=== PATIENT | male | born 1945 | race Caucasian/White ===

== ENCOUNTER 2018-01-05 23:42 | Inpatient (IN) | payer OTHER, MEDICARE ==
[~2018-01-05] VITALS: Ht 170.2 cm; Wt 49.5 kg
[2018-01-05 23:42] VITALS: BP 126/58; PULSE 125; RESP 20; TEMP 98.5; O2SAT 86
[~2018-01-05 23:42] MED LIST: AGGR20025 PO; CVS20TAB PO; PRED20 PO; VENTAER INH; ZOCO10TA PO; ZYRT10TA12 PO
[2018-01-05] MEDS ORDERED: AGGR20025 PO (23:57)
[2018-01-05] MEDS ORDERED: SYMB80AE INH (23:57)
[2018-01-05 23:58] VITALS: RESP 28; O2SAT 91
[2018-01-06] VITALS (23 sets, daily range): BP systolic 87–115; BP diastolic 43–65; PULSE 80–117; RESP 19–30; TEMP 97.6–99.5; O2SAT 92–99
[2018-01-06] MEDS ORDERED: methylPREDNISolone SOD SUCC 125 MG/2 ML VIAL IV PUSH ONE
[2018-01-06] MEDS ORDERED: SODIUM CHLORIDE 0.9% FLUSH 10 ML FLUSH IVF PRN
--- NOTE | 2018-01-06 00:06 | PD ---
HPI Chief Complaint: Respiratory Symptoms Time Seen by Provider: 23:53 Travel History International Travel<30 days: No Contact w/Intl Traveler<30days: No Traveled to known affect area: No History of Present Illness HPI 72-year-old male history of COPD and long-term smoking presented to the ER for evaluation of shortness of breath. Shortness of breath started 4 days ago, patient is only able to walk less than a block without getting short of breath, cough, productive of yellow sputum, no fever or chills. Patient has history of COPD and takes Symbicort and he tried his inhaler with minimal help. He does not use any home oxygen, no chest pain or palpitations or swelling. PFSH Past Medical History Hx Anticoagulant Therapy: Yes (ASA ) COPD: Yes Cerebrovascular Accident: Yes Neurologic: Yes (tia) Respiratory: Yes Past Surgical History Abdominal Surgery: Yes (hernia repair) Social History Alcohol Use: No Tobacco Use: Yes (E-CIG ) Substance Use: No Allergies-Medications (Allergen,Severity, Reaction): Coded Allergies: No Known Allergies (Verified Allergy, Unknown, 01/06/18) Reported Meds & Prescriptions Reported Meds & Active Scripts Active Reported Symbicort Inh (Budesonide/Formoterol Fumarate) 80-4.5 Mcg/Act Aero 2 Puff INH Q12HR Aggrenox (Dipyridamole/Aspirin) 200-25 Mg Cap 1 Cap PO BID Review of Systems Except as stated in HPI: all other systems reviewed are Neg Physical Exam Narrative GENERAL: Alert oriented x3, using accessory muscles, speaking full sentences SKIN: Focused skin assessment warm/dry. HEAD: Atraumatic. Normocephalic. EYES: Pupils equal and round. No scleral icterus. No injection or drainage. ENT: No nasal bleeding or discharge. Mucous membranes pink and moist. NECK: Trachea midline. No JVD. CARDIOVASCULAR: Regular rate and rhythm. No murmur appreciated. RESPIRATORY: No accessory muscle use. Clear to auscultation. Breath sounds equal bilaterally. GASTROINTESTINAL: Abdomen soft, non-tender, nondistended. Hepatic and splenic margins not palpable. MUSCULOSKELETAL: No obvious deformities. No clubbing. No cyanosis. No edema. NEUROLOGICAL: Awake and alert. No obvious cranial nerve deficits. Motor grossly within normal limits. Normal speech. PSYCHIATRIC: Appropriate mood and affect; insight and judgment normal. Data Data Last Documented VS Vital Signs Date Time Temp Pulse Resp B/P (MAP) Pulse Ox O2 Delivery O2 Flow Rate FiO2 01/06/18 02:55 105 24 114/55 (74) 94 Nasal Cannula 4.00 01/06/18 00:52 99.5 Orders Orders Complete Blood Count With Diff (01/05/18 23:53) Comprehensive Metabolic Panel (01/05/18 23:53) B-Type Natriuretic Peptide (01/05/18 23:53) D-Dimer (01/05/18 23:53) Act Partial Throm Time (Ptt) (01/05/18 23:53) Prothrombin Time / Inr (Pt) (01/05/18 23:53) Ckmb (Isoenzyme) Profile (01/05/18 23:53) Troponin I (01/05/18 23:53) Urinalysis - C+S If Indicated (01/05/18 23:53) Iv Access Insert/Monitor (01/05/18 23:53) Electrocardiogram (01/05/18 23:53) Ecg Monitoring (01/05/18 23:53) Oximetry (01/05/18 23:53) Oxygen Administration (01/05/18 23:53) Chest, Single Ap (01/05/18 23:53) Sodium Chloride 0.9% Flush (Ns Flush) (01/06/18 00:00) Methylprednisolone So Succ Inj (Solumedr (01/06/18 00:00) Albuterol-Ipratropium Neb (Duoneb Neb) (01/06/18 00:00) Arterial Blood Gas (Abg) (01/06/18 ) Blood Culture (01/06/18 00:14) Lactic Acid (01/06/18 00:14) CKMB (01/06/18 00:05) CKMB% (01/06/18 00:05) Sodium Chlor 0.9% 1000 Ml Inj (Ns 1000 M (01/06/18 01:00) Ct Pulmonary Angiogram (01/06/18 ) Iohexol 350 Inj (Omnipaque 350 Inj) (01/06/18 02:31) Sodium Chlor 0.9% 1000 Ml Inj (Ns 1000 M (01/06/18 03:00) Levofloxacin 500 Mg Premix Inj (Levaquin (01/06/18 03:00) Admit Order (Ed Use Only) (01/06/18 03:14) Levofloxacin 750 Mg Premix Inj (Levaquin (01/07/18 21:00) Sodium Chloride 0.9% Flush (Ns Flush) (01/06/18 03:15) Sodium Chloride 0.9% Flush (Ns Flush) (01/06/18 09:00) Albuterol-Ipratropium Neb (Duoneb Neb) (01/06/18 03:15) Methylprednisolone So Succ Inj (Solumedr (01/06/18 09:00) Admit To Inpatient (01/06/18 ) Vital Signs (Adult) Q4H (01/06/18 03:11) Notify Parameters (01/06/18 03:11) Intake + Output Q8H (01/06/18 03:11) ^ Smoking Cessation Counseling (01/06/18 03:11) Diet Heart Healthy (01/06/18 Breakfast) Legionella Urinary Antigen (01/06/18 03:11) Pneumococcal Urinary Antigen (01/06/18 03:11) Heparin Inj (Heparin Inj) (01/06/18 09:00) Inpatient Certification (01/06/18 ) Labs Laboratory Tests Test 01/06/18 00:00 01/06/18 00:05 01/06/18 00:28 Blood Gas Puncture Site RT RADIAL Blood Gas Patient Temperature 37.0 Blood Gas HCO3 26 mmol/L Blood Gas Base Excess 2.1 mmol/L Blood Gas Oxygen Saturation 89 % Arterial Blood pH 7.40 Arterial Blood Partial Pressure CO2 43 mmHg Arterial Blood Partial Pressure O2 65 mmHg Arterial Blood Oxygen Content 17.6 Vol % Arterial Blood Carboxyhemoglobin 3.7 % Arterial Blood Methemoglobin 1.0 % Blood Gas Hemoglobin 14.1 G/DL Oxygen Delivery Device NASAL CANNULA Blood Gas Liter Flow 3.5 L/M White Blood Count 8.6 TH/MM3 Red Blood Count 4.21 MIL/MM3 Hemoglobin 13.5 GM/DL Hematocrit 40.5 % Mean Corpuscular Volume 96.2 FL Mean Corpuscular Hemoglobin 32.2 PG Mean Corpuscular Hemoglobin Concent 33.4 % Red Cell Distribution Width 12.4 % Platelet Count 257 TH/MM3 Mean Platelet Volume 8.9 FL Neutrophils (%) (Auto) 74.9 % Lymphocytes (%) (Auto) 4.7 % Monocytes (%) (Auto) 19.7 % Eosinophils (%) (Auto) 0.6 % Basophils (%) (Auto) 0.1 % Neutrophils # (Auto) 6.4 TH/MM3 Lymphocytes # (Auto) 0.4 TH/MM3 Monocytes # (Auto) 1.7 TH/MM3 Eosinophils # (Auto) 0.1 TH/MM3 Basophils # (Auto) 0.0 TH/MM3 CBC Comment DIFF FINAL Differential Comment Prothrombin Time 11.4 SEC Prothromb Time International Ratio 1.1 RATIO Activated Partial Thromboplast Time 28.5 SEC D-Dimer Quantitative (PE/DVT) 1.48 MG/L FEU Urine Color RAUL Urine Turbidity CLEAR Urine pH 5.0 Urine Specific [place] GREATER/EQUAL 1.030 Urine Protein 100 mg/dL Urine Glucose (UA) NEG mg/dL Urine Ketones TRACE mg/dL Urine Occult Blood TRACE Urine Nitrite NEG Urine Bilirubin NEG Urine Urobilinogen 1.0 MG/DL Urine Leukocyte Esterase NEG Urine RBC 3-5 /hpf Urine WBC 0-2 /hpf Urine Squamous Epithelial Cells 0-5 /hpf Urine Bacteria NONE /hpf Microscopic Urinalysis Comment CULT NOT INDICATED Blood Urea Nitrogen 23 MG/DL Creatinine 0.85 MG/DL Random Glucose 127 MG/DL Total Protein 7.6 GM/DL Albumin 3.4 GM/DL Calcium Level 8.8 MG/DL Alkaline Phosphatase 98 U/L Aspartate Amino Transf (AST/SGOT) 40 U/L Alanine Aminotransferase (ALT/SGPT) 38 U/L Total Bilirubin 0.8 MG/DL Sodium Level 131 MEQ/L Potassium Level 3.8 MEQ/L Chloride Level 95 MEQ/L Carbon Dioxide Level 27.2 MEQ/L Anion Gap 9 MEQ/L Estimat Glomerular Filtration Rate 88 ML/MIN Total Creatine Kinase 201 U/L Creatine Kinase MB 2.9 NG/ML Troponin I LESS THAN 0.02 NG/ML B-Type Natriuretic Peptide 34 PG/ML Lactic Acid Level 1.1 mmol/L MDM Medical Decision Making Medical Screen Exam Complete: Yes Emergency Medical Condition: Yes Differential Diagnosis Pneumonia, pneumothorax, PE, malignancy. Narrative Course 72-year-old male with history of 1 pack per day smoking for the last 50+ years presented to the ER for shortness of breath. When arrived in the ER patient was saturating 80% on room air, using accessory muscles, tachycardic, tachypneic. Patient improved with nasal cannula oxygen but every time we lower the oxygen less than 2 L his saturations drop. Patient received multiple neb treatment and has been coughing green phlegm. Chest x-ray is unremarkable CAT scan shows evidence of pneumonia without evidence of PE. Labs remarkable for a left shift and hyponatremia. Patient had 2 episodes of hypotension that improved with 2 L of IV fluids. Lactic acid is normal and patient does not appear septic. Will admit the patient for a pneumonia with hypoxia and hypotension, hyponatremia. Last [address] Angiography 01/06/18 0000 Signed Impressions: CONCLUSION: 1. No evidence of pulmonary embolism 2. COPD 3. Scattered bilateral pulmonary infiltrates suggestive of pneumonia. Chest X-Ray 01/05/18 [id number] Signed Impressions: CONCLUSION: 1. COPD with chronic interstitial changes bilaterally. 2. Stable exam compared to the prior study. Laboratory Tests Test 01/06/18 00:00 01/06/18 00:05 01/06/18 00:28 Blood Gas Puncture Site RT RADIAL Blood Gas Patient Temperature 37.0 Blood Gas HCO3 26 mmol/L Blood Gas Base Excess 2.1 mmol/L Blood Gas Oxygen Saturation 89 % Arterial Blood pH 7.40 Arterial Blood Partial Pressure CO2 43 mmHg Arterial Blood Partial Pressure O2 65 mmHg Arterial Blood Oxygen Content 17.6 Vol % Arterial Blood Carboxyhemoglobin 3.7 % Arterial Blood Methemoglobin 1.0 % Blood Gas Hemoglobin 14.1 G/DL Oxygen Delivery Device NASAL CANNULA Blood Gas Liter Flow 3.5 L/M White Blood Count 8.6 TH/MM3 Red Blood Count 4.21 MIL/MM3 Hemoglobin 13.5 GM/DL Hematocrit 40.5 % Mean Corpuscular Volume 96.2 FL Mean Corpuscular Hemoglobin 32.2 PG Mean Corpuscular Hemoglobin Concent 33.4 % Red Cell Distribution Width 12.4 % Platelet Count 257 TH/MM3 Mean Platelet Volume 8.9 FL Neutrophils (%) (Auto) 74.9 % Lymphocytes (%) (Auto) 4.7 % Monocytes (%) (Auto) 19.7 % Eosinophils (%) (Auto) 0.6 % Basophils (%) (Auto) 0.1 % Neutrophils # (Auto) 6.4 TH/MM3 Lymphocytes # (Auto) 0.4 TH/MM3 Monocytes # (Auto) 1.7 TH/MM3 Eosinophils # (Auto) 0.1 TH/MM3 Basophils # (Auto) 0.0 TH/MM3 CBC Comment DIFF FINAL Differential Comment Prothrombin Time 11.4 SEC Prothromb Time International Ratio 1.1 RATIO Activated Partial Thromboplast Time 28.5 SEC D-Dimer Quantitative (PE/DVT) 1.48 MG/L FEU Urine Color RAUL Urine Turbidity CLEAR Urine pH 5.0 Urine Specific [place] GREATER/EQUAL 1.030 Urine Protein 100 mg/dL Urine Glucose (UA) NEG mg/dL Urine Ketones TRACE mg/dL Urine Occult Blood TRACE Urine Nitrite NEG Urine Bilirubin NEG Urine Urobilinogen 1.0 MG/DL Urine Leukocyte Esterase NEG Urine RBC 3-5 /hpf Urine WBC 0-2 /hpf Urine Squamous Epithelial Cells 0-5 /hpf Urine Bacteria NONE /hpf Microscopic Urinalysis Comment CULT NOT INDICATED Blood Urea Nitrogen 23 MG/DL Creatinine 0.85 MG/DL Random Glucose 127 MG/DL Total Protein 7.6 GM/DL Albumin 3.4 GM/DL Calcium Level 8.8 MG/DL Alkaline Phosphatase 98 U/L Aspartate Amino Transf (AST/SGOT) 40 U/L Alanine Aminotransferase (ALT/SGPT) 38 U/L Total Bilirubin 0.8 MG/DL Sodium Level 131 MEQ/L Potassium Level 3.8 MEQ/L Chloride Level 95 MEQ/L Carbon Dioxide Level 27.2 MEQ/L Anion Gap 9 MEQ/L Estimat Glomerular Filtration Rate 88 ML/MIN Total Creatine Kinase 201 U/L Creatine Kinase MB 2.9 NG/ML Troponin I LESS THAN 0.02 NG/ML B-Type Natriuretic Peptide 34 PG/ML Lactic Acid Level 1.1 mmol/L Diagnosis Primary Impression: Pneumonia Qualified Codes: J18.9 - Pneumonia, unspecified organism Additional Impressions: Hyponatremia Hypoxia Admitting Information Admitting Physician Requests: it Emigdio Jorge MD Jan 06, 2018 00:06
[2018-01-06] MEDS: RESP: ALBUTEROL 2.5 MG/IPRATROPIUM 0.5 MG NEB (SCH) INH (00:16)
[2018-01-06 00:32] LABS: BILIRUBIN, URINE NEG (NEG); BLOOD, URINE TRACE (NEG); GLUCOSE,URINE NEG (NEG); KETONE, URINE TRACE mg/dL (NEG); NITRITE,URINE NEG (NEG); URINE LEUKOCYTE ESTERASE NEG (NEG)
--- NOTE | 2018-01-06 00:40 | RADRPT ---
EXAM DATE: 01/06/2018 12:32 AM EDT AGE/SEX: 72 years / Male INDICATIONS: Shortness of breath. CLINICAL DATA: This is the patient's initial encounter. Patient reports that signs and symptoms have been present for 2 days and indicates a pain score of 0/10. MEDICAL/SURGICAL HISTORY: None. Umbilical hernia repair. COMPARISON: [facility] – [place], CHEST SINGLE AP, 03/17/2016. . FINDINGS: There is hyperaeration bilaterally. There is stable chronic interstitial changes bilaterally. No new areas of parenchymal consolidation. The heart size is within normal limits. There are no pleural effu sions. The bony structures are stable. There are some old left-sided healed rib fractures. No signifi cant changes compared to the prior study. CONCLUSION: 1. COPD with chronic interstitial changes bilaterally. 2. Stable exam compared to the prior study. Electronically signed by: Pastor Lopez MD 01/06/2018 12:38 AM EDT
[2018-01-06 00:41] LABS: CHLORIDE 95 MEQ/L (98-107); SODIUM (NA) 131 MEQ/L (136-145)
[2018-01-06 00:42] LABS: URINE COLOR AMBER (YELLW/STRAW)
[2018-01-06 00:43] LABS: SQUAMOUS EPITHELIAL CELL URINE 0-5 /hpf (0-5); WBC, URINE 0-2 /hpf (0-5)
[2018-01-06 00:44] LABS: ALBUMIN 3.4 GM/DL (3.4-5.0); BICARBONATE 27.2 MEQ/L (21.0-32.0); BLOOD UREA NITROGEN 23 MG/DL (7-18); CALCIUM 8.8 MG/DL (8.5-10.1); GLUCOSE,RANDOM 127 MG/DL (74-106)
[2018-01-06 00:47] LABS: ALT (GPT) 38 U/L (12-78); AST (GOT) 40 U/L (15-37); CREATININE 0.85 MG/DL (0.60-1.30); D-DIMER 1.48 MG/L FEU (0.00-0.50); GLOMERULAR FILTRATION RATE 88 ML/MIN (>89); INTERNATIONAL NORMALIZED RATIO 1.1 RATIO; PROTHROMBIN TIME - PATIENT 11.4 SEC (9.8-11.6)
[2018-01-06 00:49] LABS: TOTAL BILIRUBIN ADULT 0.8 MG/DL (0.2-1.0); TOTAL PROTEIN 7.6 GM/DL (6.4-8.2)
[2018-01-06 00:50] LABS: ALKALINE PHOSPHATASE 98 U/L (45-117)
[2018-01-06 00:51] LABS: AUTOMATED NEUTROPHIL # 6.4 TH/MM3 (1.8-7.7); BASOPHIL % 0.1 % (0.0-2.0); EOSINOPHIL # 0.1 TH/MM3 (0-0.4); EOSINOPHIL % 0.6 % (0.0-4.0); HEMATOCRIT 40.5 % (39.0-51.0); HEMOGLOBIN 13.5 GM/DL (13.0-17.0); LYMPH % 4.7 % (9.0-44.0); LYMPHOCYTE # 0.4 TH/MM3 (1.0-4.8); MEAN CELL VOLUME 96.2 FL (80.0-100.0); MEAN CORPUSCULAR HEMOGLOBIN 32.2 PG (27.0-34.0); MEAN CORPUSCULAR HGB CONC 33.4 % (32.0-36.0); MEAN PLATELET VOLUME 8.9 FL (7.0-11.0); MONO % 19.7 % (0.0-8.0); MONOCYTE # 1.7 TH/MM3 (0-0.9); NEUT % 74.9 % (16.0-70.0); PLATELET COUNT 257 TH/MM3 (150-450); RED BLOOD COUNT 4.21 MIL/MM3 (4.50-5.90); RED CELL DISTRIBUTION WIDTH 12.4 % (11.6-17.2); WHITE BLOOD COUNT 8.6 TH/MM3 (4.0-11.0)
[2018-01-06 00:52] LABS: TROPONIN I LESS THAN 0.02 NG/ML (0.02-0.05)
[2018-01-06] MEDS ORDERED: SODIUM CHLOR 0.9% 1000 ML INJ 1,000 ML IV ONE ×2 (01:00→03:00)
[2018-01-06] MEDS ORDERED: IOHEXOL 350 MG/ML 10 ML VIAL (for RAD DIAG) IVCONTRAST ONE (02:31)
--- NOTE | 2018-01-06 02:37 | RADRPT ---
EXAM DATE: 01/06/2018 2:30 AM EDT AGE/SEX: 72 years / Male INDICATIONS: Difficulty breathing with exertion. CLINICAL DATA: This is the patient's initial encounter. Patient reports that signs and symptoms have been present for 2 weeks and indicates a pain score of 0/10. MEDICAL/SURGICAL HISTORY: Chronic obstructive pulmonary disease. None. RADIATION DOSE: 5.91 CTDI (mGy) COMPARISON: No prior [place] exams available for comparison. TECHNIQUE: Volumetric scanning was performed using a multi-row detector CT scanner during bolus infu mary lou of 75 ml Omnipaque 350 (iohexol) nonionic water-soluble contrast as a single exam dose. The ruthie a was post processed with a variety of visualization algorithms including full volume maximum intensi ty projection and sliding thin slab reformation. Using automated exposure control and adjustment of the mA and/or kV according to patient size, radiation dose was kept as low as reasonably achievable t o obtain optimal diagnostic quality images. FINDINGS: Pulmonary Arteries: No filling defects are seen in the pulmonary arteries out to the subsegmental ve ssels. The left and right pulmonary arteries are normal in diameter. Lung: There is hyperaeration of both lung schreiber. There is chronic interstitial changes bilaterally characteristic of COPD. There is bullous changes in both apices. There are scattered nonspecific pulm onary infiltrates in both lungs. Effusion: None. Mediastinum: No evidence of mediastinal or hilar adenopathy. Other: The axilla is unremarkable. CONCLUSION: 1. No evidence of pulmonary embolism 2. COPD 3. Scattered bilateral pulmonary infiltrates suggestive of pneumonia. Electronically signed by: Pastor Lopez MD 01/06/2018 2:36 AM EDT
[2018-01-06] MEDS ORDERED: LEVOFLOXACIN 500 MG PREMIX INJ 100 ML IV ONE (03:00)
[2018-01-06] MEDS ORDERED: RESP: ALBUTEROL 2.5 MG/IPRATROPIUM 0.5 MG NEB (PRN) INH (03:15)
[2018-01-06] MEDS ORDERED: SODIUM CHLORIDE 0.9% FLUSH 10 ML FLUSH IV FLUSH PRN (03:15)
[2018-01-06] MEDS ORDERED: SODIUM CHLOR 0.9% 1000 ML INJ 1,000 ML IV SCH (03:30)
[2018-01-06] MEDS ORDERED: CHLORHEXIDINE GLUCONATE 2 % 1 PACK (2 CLOTHS)(extra cloths) TOPICAL PRN (05:00)
[2018-01-06] MEDS ORDERED: SODIUM CHLORIDE 0.9% FLUSH 10 ML FLUSH IV FLUSH SCH (09:00)
[2018-01-06] MEDS ORDERED: methylPREDNISolone SOD SUCC 40 MG/1 ML VIAL IV PUSH SCH (09:00)
[2018-01-06] MEDS ORDERED: HEPARIN SODIUM - SQ 10,000 UNITS/ML VIAL SQ SCH (09:00)
--- NOTE | 2018-01-06 10:48 | HHI.HP ---
[facility] Reynaldo Dejesus M.D. Admission Diagnosis HYPONATREMIA, PNEUMONIA, HYPOXIA. Diagnoses: (1) Sepsis Diagnosis: Principal (2) Acute respiratory failure with hypoxia and hypercapnia Diagnosis: Principal (3) Chronic obstructive pulmonary disease Diagnosis: Principal (4) Bilateral pneumonia Diagnosis: Principal Chief Complaint: Shortness of breath and dyspnea Travel History International Travel<30 Days: No Contact w/Intl Traveler <30 Da: No Traveled to Known Affected Are: No Sepsis Criteria SIRS Criteria (2 or more): Heart rate over 90, RR > 20 or PaCO2 < 32 Sepsis Criteria (SIRS+source): Infect source susp/known History of Present Illness This is a 72-year-old male with known history of TIAs, chronic tobacco use, chronic obstructive pulmonary disease who presented to the hospital because of shortness of breath and dyspnea. Patient states that over the last few months he has been experiencing worsening shortness of breath, dyspnea on exertion. States that he can usually walk a mile without getting short of breath. He is down to only a couple 100 feet at this time until he has to stop and rest. Patient does live at home with his who does have dementia and chronic pain. He has a sole caregiver for his and is very concerned about her since he is in the hospital. Patient denied any chest pain, abdominal pain, nausea, vomiting, diaphoresis, lower extremity edema. Patient did have workup done emergency department and found to have acute hypoxic/hypercapnic respiratory failure with sepsis meeting criteria with tachycardia, tachypnea, CT with bilateral infiltrates. Patient was recommended admission for further evaluation and management. Patient continues on 4 L of oxygen with O2 saturations of 93%. Review of Systems Respiratory: COMPLAINS OF: Shortness of breath Cardiovascular: COMPLAINS OF: Dyspnea on Exertion Except as stated in HPI: all other systems reviewed are Neg Past Family Social History Past Medical History Chronic tobacco use Multiple TIAs Chronic obstructive pulmonary disease Past Surgical History Abdominal hernia repair Right arm surgery Reported Medications Reported Meds & Active Scripts Active Reported Symbicort Inh (Budesonide/Formoterol Fumarate) 80-4.5 Mcg/Act Aero 2 Puff INH Q12HR Aggrenox (Dipyridamole/Aspirin) 200-25 Mg Cap 1 Cap PO BID Allergies: Coded Allergies: No Known Allergies (Verified Allergy, Unknown, 01/06/18) Family History Family history was reviewed and significant for mother at 84 from uterine cancer, father at age 79 with bladder cancer. Social History Patient continues to smoke approximately one half pack of cigarettes a day since he was 13 years old. Patient denies any alcohol or illicit drug Physical Exam Vital Signs Vital Signs Date Time Temp Pulse Resp B/P (MAP) Pulse Ox O2 Delivery O2 Flow Rate FiO2 01/06/18 10:00 92 01/06/18 10:00 98 27 108/57 (74) 93 01/06/18 09:00 102 01/06/18 08:00 94 Nasal Cannula 3.00 01/06/18 08:00 94 01/06/18 08:00 92 30 99/57 (71) 96 01/06/18 07:13 97.6 96 26 97/57 (70) 93 01/06/18 07:00 80 19 87/45 (59) 96 01/06/18 07:00 98 01/06/18 06:26 92 01/06/18 06:24 104 26 97/47 (64) 01/06/18 06:04 88 19 87/44 (58) 96 01/06/18 05:04 102 29 104/65 (78) 94 01/06/18 05:02 102 01/06/18 04:48 98.1 100 20 98/58 (71) 96 01/06/18 04:38 01/06/18 04:00 112 24 93/53 (66) 94 Nasal Cannula 4.00 01/06/18 03:30 110 24 108/52 (70) 94 Nasal Cannula 4.00 01/06/18 02:55 105 24 114/55 (74) 94 Nasal Cannula 4.00 01/06/18 02:29 109 24 105/52 (69) 94 Nasal Cannula 4.00 01/06/18 02:14 100 24 87/46 (60) 93 Nasal Cannula 3.00 01/06/18 01:30 104 24 91/43 (59) 94 Nasal Cannula 3.00 01/06/18 01:00 112 24 100/50 (67) 92 Nasal Cannula 3.00 01/06/18 00:52 99.5 110 26 115/62 (79) 95 Nasal Cannula 3.00 01/06/18 00:30 116 26 115/62 (79) 99 Nasal Cannula 4.00 01/06/18 00:16 95 Nasal Cannula 4.50 01/06/18 00:15 93 Nasal Cannula 3.50 01/06/18 00:12 117 28 112/55 (74) 93 Nasal Cannula 4.00 01/06/18 00:12 28 93 Nasal Cannula 4.00 01/05/18 23:58 91 Nasal Cannula 3.50 01/05/18 23:58 28 91 3.50 01/05/18 23:42 98.5 125 20 126/58 (80) 86 Physical Exam GENERAL: Well-developed, frail and cachectic, in no acute distress. alert and orientated HEENT: Head is normocephalic without any lesions or masses noted. Facial features are symmetric. Eyes: Pupils equal round reactive to light. Extraocular muscles are intact. Conjunctivae were clear. Oropharyngeal: Pharynx without any erythema edema. Tongue is midline without deviation. Buccal mucosa is moist without any masses or lesions NECK: Supple without any masses. Trachea midline no deviation. No JVD, no bruits are appreciated CARDIAC: Regular rhythm, regular rate. S1/S2 are heard. No murmurs gallops or rubs. LUNGS: Diminished lung sounds bilaterally, right greater than left. No wheeze, rhonchi or rales. No use of accessory muscles on inspiration or expiration. ABDOMEN: Soft, nontender. Nondistended. Bowel sounds heard in all 4 quadrants. No organomegaly or masses. Negative rebound, negative guarding EXTREMITIES: No edema, pulses are equal bilaterally. No cyanosis or clubbing NEUROLOGY: Mood and affect appear appropriate. Cranial nerves II through XII grossly intact. Muscle strength 5/5 in upper and lower extremities bilaterally. Deep tendon reflexes are 2+ in upper and lower extremities bilaterally. Laboratory Laboratory Tests Test 01/06/18 00:00 01/06/18 00:05 01/06/18 00:28 01/06/18 04:40 Blood Gas Puncture Site RT RADIAL Blood Gas Patient Temperature 37.0 Blood Gas HCO3 26 Blood Gas Base Excess 2.1 Blood Gas Oxygen Saturation 89 Arterial Blood pH 7.40 Arterial Blood Partial Pressure CO2 43 Arterial Blood Partial Pressure O2 65 Arterial Blood Oxygen Content 17.6 Arterial Blood Carboxyhemoglobin 3.7 Arterial Blood Methemoglobin 1.0 Blood Gas Hemoglobin 14.1 Oxygen Delivery Device NASAL CANNULA Blood Gas Liter Flow 3.5 White Blood Count 8.6 Red Blood Count 4.21 Hemoglobin 13.5 Hematocrit 40.5 Mean Corpuscular Volume 96.2 Mean Corpuscular Hemoglobin 32.2 Mean Corpuscular Hemoglobin Concent 33.4 Red Cell Distribution Width 12.4 Platelet Count 257 Mean Platelet Volume 8.9 Neutrophils (%) (Auto) 74.9 Lymphocytes (%) (Auto) 4.7 Monocytes (%) (Auto) 19.7 Eosinophils (%) (Auto) 0.6 Basophils (%) (Auto) 0.1 Neutrophils # (Auto) 6.4 Lymphocytes # (Auto) 0.4 Monocytes # (Auto) 1.7 Eosinophils # (Auto) 0.1 Basophils # (Auto) 0.0 CBC Comment DIFF FINAL Differential Comment Prothrombin Time 11.4 Prothromb Time International Ratio 1.1 Activated Partial Thromboplast Time 28.5 D-Dimer Quantitative (PE/DVT) 1.48 Urine Color RAUL Urine Turbidity CLEAR Urine pH 5.0 Urine Specific [place] GREATER/EQUAL 1.030 Urine Protein 100 Urine Glucose (UA) NEG Urine Ketones TRACE Urine Occult Blood TRACE Urine Nitrite NEG Urine Bilirubin NEG Urine Urobilinogen 1.0 Urine Leukocyte Esterase NEG Urine RBC 3-5 Urine WBC 0-2 Urine Squamous Epithelial Cells 0-5 Urine Bacteria NONE Microscopic Urinalysis Comment CULT NOT INDICATED Blood Urea Nitrogen 23 Creatinine 0.85 Random Glucose 127 Total Protein 7.6 Albumin 3.4 Calcium Level 8.8 Alkaline Phosphatase 98 Aspartate Amino Transf (AST/SGOT) 40 Alanine Aminotransferase (ALT/SGPT) 38 Total Bilirubin 0.8 Sodium Level 131 Potassium Level 3.8 Chloride Level 95 Carbon Dioxide Level 27.2 Anion Gap 9 Estimat Glomerular Filtration Rate 88 Total Creatine Kinase 201 Creatine Kinase MB 2.9 Troponin I LESS THAN 0.02 B-Type Natriuretic Peptide 34 Lactic Acid Level 1.1 Date/Time Source Procedure Growth Status 01/06/18 00:32 Blood Peripheral Aerobic Blood Culture Pending Received 01/06/18 00:32 Blood Peripheral Anaerobic Blood Culture Pending Received 01/06/18 09:00 Sputum Expectorated Sputum Gram Stain Pending Received 01/06/18 09:00 Sputum Expectorated Sputum Sputum Culture Pending Received 01/06/18 00:05 Urine Clean Catch Legionella Antigen Pending Received 01/06/18 00:05 Urine Clean Catch Streptococcus pneumoniae Antigen (M Pending Received Result Diagram: 01/06/18 0005 01/06/18 [address] Angiography 01/06/18 0000 Signed Impressions: CONCLUSION: 1. No evidence of pulmonary embolism 2. COPD 3. Scattered bilateral pulmonary infiltrates suggestive of pneumonia. Chest X-Ray 01/05/18 0760 Signed Impressions: CONCLUSION: 1. COPD with chronic interstitial changes bilaterally. 2. Stable exam compared to the prior study. Septic Shock Reassessment Septic shock perfusion: reassessment completed Caprini VTE Risk Assessment Caprini VTE Risk Assessment: Mod/High Risk (score >= 2) Caprini Risk Assessment Model Point Value = 1 Point Value = 2 Point Value = 3 Point Value = 5 Age 41-60 Minor surgery BMI > 25 kg/m2 Swollen legs Varicose veins or History of unexplained or recurrent spontaneous Oral contraceptives or hormone replacement Sepsis (< 1 month) Serious lung disease, including pneumonia (< 1 month) Abnormal pulmonary function Acute myocardial infarction Congestive heart failure (< 1 month) History of inflammatory bowel disease Medical patient at bed rest Age 61-74 Arthroscopic surgery Major open surgery (> 45 min) Laparoscopic surgery (> 45 min) Malignancy Confined to bed (> 72 hours) Immobilizing plaster cast Central venous access Age >= 75 History of VTE Family history of VTE Factor V Leiden Prothrombin 12420C Lupus anticoagulant Anticardiolipin antibodies Elevated serum homocysteine Heparin-induced thrombocytopenia Other congenital or acquired thrombophilia Stroke (< 1 month) Elective arthroplasty Hip, pelvis, or leg fracture Acute spinal cord injury (< 1 month) Prophylaxis Regimen Total Risk Factor Score Risk Level Prophylaxis Regimen 0-1 Low Early ambulation 2 Moderate Order ONE of the following: *Sequential Compression Device (SCD) *Heparin 5000 units SQ BID 3-4 Higher Order ONE of the following medications: *Heparin 5000 units SQ TID *Enoxaparin/Lovenox 40 mg SQ daily (WT < 150 kg, CrCl > 30 mL/min) *Enoxaparin/Lovenox 30 mg SQ daily (WT < 150 kg, CrCl > 10-29 mL/min) *Enoxaparin/Lovenox 30 mg SQ BID (WT < 150 kg, CrCl > 30 mL/min) AND/OR *Sequential Compression Device (SCD) 5 or more Highest Order ONE of the following medications: *Heparin 5000 units SQ TID (Preferred with Epidurals) *Enoxaparin/Lovenox 40 mg SQ daily (WT < 150 kg, CrCl > 30 mL/min) *Enoxaparin/Lovenox 30 mg SQ daily (WT < 150 kg, CrCl > 10-29 mL/min) *Enoxaparin/Lovenox 30 mg SQ BID (WT < 150 kg, CrCl > 30 mL/min) AND *Sequential Compression Device (SCD) Assessment and Plan Assessment and Plan Sepsis -Patient met criteria on admission with tachypnea, tachycardia, CT scan with bilateral infiltrates -Sputum and blood cultures are pending -Legionella, streptococcal pneumonia testing are pending -Patient continued on Levaquin -Would recommend influenza testing Acute respiratory failure with hypoxia and hypercapnia -Multifactorial with patient having bilateral infiltrates, chronic obstructive pulmonary disease with possible exacerbation -Continue O2 supplementation maintain O2 sats greater than 92% -Continue Solu-Medrol 40 mg every 12 hours -Continue duo nebs every 4 hours -Patient would benefit from Acapella/incentive spirometry -Would recommend continuation of Symbicort -Would recommend pulmonary consultation -Patient would benefit from outpatient PFTs once acute phase is treated -Patient will likely require home oxygen, would recommend home oxygen walk study History of TIAs -Would recommend continuation of Aggrenox DVT prevention -Subcutaneous heparin Discharge disposition Patient indicates that he cannot remain in the hospital. He states that he is a sole caregiver of his who has dementia. He indicates that he has to leave in order to take care of his and take her to a pain management appointment today at noon. We have discussed with the patient that we will get case management involved in order to try to contact friends, family, support group in order to check on his while he is in the hospital. Patient states that he does not want to wait in order to have case management speak with him to see how we can help him with his so he can remain in the hospital. I notified the patient that he is very sick with significant respiratory failure requiring at least 4 L of oxygen to maintain O2 saturations in the low 90s. I told him that he may not survive if he would leave the hospital with that low oxygen level. Patient does acknowledge that he is sick and that he may not survive if he leaves the hospital, however he is adamant that he is going to leave the hospital today to take care of his . Patient plans on leaving AGAINST MEDICAL ADVICE at this time. I instructed him that he needs to return to the hospital for appropriate treatment after he takes care of his personal matters so he can receive appropriate treatment. Patient did acknowledge understanding. This was discussed with the patient with nurse present. Physician Certification 2 Midnight Certification Type: Admission for Inpatient Services Order for Inpatient Services The services are ordered in accordance with Medicare regulations or non- Medicare payer requirements, as applicable. In the case of services not specified as inpatient-only, they are appropriately provided as inpatient services in accordance with the 2-midnight benchmark. Estimated LOS (days): 3 days is the estimated time the patient will need to remain in the hospital, assuming treatment plan goals are met and no additional complications. Post-Hospital Plan: Not yet determined Juan Jose Desai Jan 06, 2018 10:47
--- NOTE | 2018-01-06 19:03 | EKG ---
Date Performed: 01/06/2018 Time Performed: 00:00:13 PTAGE: 72 years EKG: SINUS TACHYCARDIA POSSIBLE RIGHT VENTRICULAR CONDUCTION DELAY ABNORMAL RHYTHM ECG PREVIOUS TRACING : 03/17/2016 07.28 Compared to previous tracing, rate faster DOCTOR: Adin Thornton Interpretating Date/Time 01/06/2018 19:01:31
[2018-01-07] MEDS ORDERED: CHLORHEXIDINE GLUCONATE 2 % 1 PACK (2 CLOTHS)(taper/protocol) TOPICAL SCH (04:00)
[2018-01-07] MEDS ORDERED: INFLUENZA VIRUS VACCINE (QUADRIVALENT) 0.5 ML SYR IM ONE (10:00)
[2018-01-07] MEDS ORDERED: LEVOFLOXACIN 750 MG PREMIX INJ 150 ML IV SCH (21:00)
== END 2018-01-06 10:15 | disposition left against medical advice (07) | DRG 871 ==
LOC: PHED 23:42 → PHEDA 01-06 03:16 → PHICU 01-06 04:30
PROVIDERS: ADMIT Family Medicine; ATTEND Family Medicine
DX: A41.9 Sepsis, unspecified organism (principal); J18.9 Pneumonia, unspecified organism; I95.9 Hypotension, unspecified; J96.01 Acute respiratory failure with hypoxia; J96.02 Acute respiratory failure with hypercapnia; E87.1 Hypo-osmolality and hyponatremia; J44.0 Chronic obstructive pulmonary disease with (acute) lower respiratory infection; F17.210 Nicotine dependence, cigarettes, uncomplicated; R00.0 Tachycardia, unspecified; Z86.73 Personal history of transient ischemic attack (TIA), and cerebral infarction without residual deficits; Z23 Encounter for immunization
CPT/HCPCS: 36600; 71045; 71275; 80053; 81001; 82550; 82552; 82805; 83605; 83880; 84484; 85025; 85379; 85610; 85730; 87040; 87070; 87205; 87449; 87641; 93005; 94640; 94664; J1644; J1956; J2920; J2930; J7030; Q9967